=== PATIENT | female | born 1940 | race Caucasian/White ===

== ENCOUNTER → 2016-10-15 | Outpatient (CLI) | payer OTHER, MEDICAID | LOC: BHFA 13:00 | PROVIDERS: ATTEND Internal Medicine Cardiovascular Disease | DX: I25.10 Atherosclerotic heart disease of native coronary artery without angina pectoris (principal); I48.91 Unspecified atrial fibrillation; R55 Syncope and collapse ==

== ENCOUNTER 2016-12-04 13:25 | Emergency (ER) | payer OTHER, MEDICAID ==
[2016-12-04 13:52] VITALS: TEMP 98.4
--- NOTE | 2016-12-04 13:54 | EDPHY ---
H & P Time Seen by Provider: 12/04/16 13:41 HPI/ROS: CHIEF COMPLAINT: Left hand pain History by patient HISTORY OF PRESENT ILLNESS: 76-year-old woman with history of strokes and on Coumadin presents complaining of left hand pain since yesterday when she was getting up from her recliner and her left hand slipped off the arm rest. Initially did not hurt but then later in the day she noticed she was having pain when she tried to do things with her left hand. This morning she woke up and it was very painful and she could hold things because it hurt and there was some redness on the dorsum of her hand and it hurt to touch. There was no direct trauma to the dorsum of the hand which is the place that hurts the most. She was coming in to get her INR checked and thought she should get her hand checked out as well. She did get a herpes zoster vaccine earlier this year. She denies any fever chills and is otherwise feeling well. REVIEW OF SYSTEMS: As in HPI, and all other systems reviewed and are negative Smoking Status: Never smoked Physical Exam: General Appearance: Alert and no distress. Eyes: Pupils equal and round no injection. Musculoskeletal: Neck is supple and nontender. Extremities: Left hand with minimal erythema over the dorsum of the hand with minimal to no swelling, positive marked tenderness over the proximal 3rd and 4th metacarpals. Positive small 3 mm red-brownish macule in middle of redness. Positive full range of motion of all fingers against resistance but with pain with extension against resistance. Radial pulses 2+ and equal bilaterally. Distal cap refill is less than 2 seconds, distal sensations intact, there is no tenderness on the palmar side.. Skin: No rashes or lesions except as described above. Lymph: No axillary adenopathy Constitutional: Initial Vital Signs Temperature (C) 36.9 C 12/04/16 13:48 Heart Rate 67 12/04/16 13:48 Respiratory Rate 20 12/04/16 13:48 Blood Pressure 131/62 H 12/04/16 13:48 O2 Sat (%) 94 12/04/16 13:48 O2 Delivery Mode Room Air Allergies/Adverse Reactions: codeine [Codeine] Allergy (Verified 12/04/16 13:44) Penicillins Allergy (Verified 12/04/16 13:44) shellfish derived Allergy (Verified 12/04/16 13:44) Sulfa (Sulfonamide Antibiotics) Allergy (Verified 12/04/16 13:44) Home Medications: Medication Instructions Recorded Enalapril Maleate [Vasotec 5 MG 5 mg PO BID 01/24/14 (*)] Insulin Glargine [Lantus 100 8 units SC DAILY 01/24/14 UNITS/ML (*)] Levothyroxine [Synthroid 75 mcg 75 mcg PO DAILY06 01/24/14 (*)] Nitroglycerin [Nitrostat 0.4 mg 0.4 mg SL PRN PRN 01/24/14 (*)] [place]-3 Fatty Acids [Fish Oil 1000 1,000 mg PO DAILY 01/24/14 mg (*)] Oxybutynin Chloride [OXYBUTYNIN 15 mg PO DAILY 01/24/14 CHLORIDE ER] Simvastatin [Zocor 40 mg] 40 mg PO DAILY18 01/24/14 metFORMIN HCL [Glucophage 500 mg 1,000 mg PO BIDMEAL 01/24/14 (*)] Aspirin [Aspirin 81mg (*)] 81 mg PO DAILY 08/27/14 Naproxen Sodium [Aleve 220 MG (*)] 220 mg PO DAILY 08/27/14 Omeprazole [Prilosec 20 mg] 20 mg PO DAILY@07 08/27/14 Propafenone HCl Sr [Rythmol Sr 225 mg PO BID 08/27/14 225mg (*)] Warfarin Sodium [Coumadin 5MG (*)] 2.5 mg PO SUMOWETHFRSA@16 08/27/14 Warfarin Sodium [Coumadin 5MG (*)] 5 mg PO TU@16 08/27/14 ALPRAZolam [Xanax 0.25 MG (*)] 0.25 mg PO BID PRN #14 tab 08/29/14 ALPRAZolam [Xanax 0.25 MG (*)] 0.25 mg PO DAILY PRN #0 tab 08/29/14 Doxycycline Hyclate 100 mg PO BID #20 capsule 12/18/15 Furosemide [Lasix 20 MG (*)] 20 mg PO DAILY #20 tab 02/02/16 Cephalexin 500 mg PO BID #20 capsule 12/04/16 MDM/Departure - [facility] ED Course/Re-evaluation: 76-year-old woman with multiple medical problems presents complaining of left hand pain and redness after minor trauma yesterday. X-ray shows no evidence of fracture. Given the hand is red, and tender with a small lesion that the patient says has been there for months but could be portal for infection I will go ahead and start her on Keflex for presumed cellulitis. Patient has an allergy to penicillins but states she has taken Keflex in the past without trouble. We discussed at length return precautions and I recommend recheck in 24-48 hours with her primary care physician. Patient understands and is agreeable to this plan. - Depart Disposition: Home, Routine, Self-Care Clinical Impression: Hand pain, left, Cellulitis of hand, left Clinical Impression: (Ruled Out): Contusion of hand, left, Cellulitis and abscess of hand Condition: Good Instructions: Cellulitis (ED) Additional Instructions: You were seen by Dr. Belen Gleason today. Your x-ray showed no evidence of broken bones. Because of the redness and tenderness we will treat it like an infection. Please start your antibiotics, Keflex, today. You may take Tylenol) the cecum in a fan) as needed for pain. Please have your hand recheck by her primary care physician in 24-48 hours. Return immediately if the hand seems to be getting worse, he developed a fever, the redness is spreading or if the pain is uncontrolled. I recommend taking probiotics in between doses of antibiotics. Return for any worsening or new concerns. Prescriptions: Cephalexin 500 mg PO BID #20 capsule Referrals: Cole Marcos MD [Primary Care Provider] - As per Instructions
[2016-12-04 14:34] VITALS: BP 147/74; PULSE 74; RESP 18; O2SAT 97
== END 2016-12-04 14:32 | disposition home or self-care (01) ==
LOC: CED 13:25
DX: L03.114 Cellulitis of left upper limb (principal); Z79.01 Long term (current) use of anticoagulants; Z79.82 Long term (current) use of aspirin
CPT/HCPCS: 73130-PO

== ENCOUNTER → 2016-12-30 | Outpatient (CLI) | payer OTHER, MEDICAID | LOC: CIMAGING 11:35 | PROVIDERS: ATTEND Internal Medicine | DX: R42 Dizziness and giddiness (principal); G31.9 Degenerative disease of nervous system, unspecified | CPT/HCPCS: 70450-PO ==

== ENCOUNTER → 2017-06-25 | Outpatient (CLI) | payer OTHER, MEDICAID | LOC: CIMAGING 07:19 | PROVIDERS: ATTEND Internal Medicine | DX: K80.20 Calculus of gallbladder without cholecystitis without obstruction (principal); K76.0 Fatty (change of) liver, not elsewhere classified | CPT/HCPCS: 76700-PO ==

== ENCOUNTER → 2017-07-03 | Outpatient (CLI) | payer OTHER, MEDICAID ==
[~2017-07-03] MED LIST: IOPAMIDOL (ISOVUE-300) 100 ML BTL ONE
== END ==
LOC: CIMAGING 13:10
PROVIDERS: ATTEND Internal Medicine
DX: K80.20 Calculus of gallbladder without cholecystitis without obstruction (principal); K57.30 Diverticulosis of large intestine without perforation or abscess without bleeding; K86.89 Other specified diseases of pancreas; K44.9 Diaphragmatic hernia without obstruction or gangrene
CPT/HCPCS: 74177; Q9967

== ENCOUNTER 2017-08-27 13:31 | Emergency (ER) | payer OTHER, MEDICAID ==
--- NOTE | 2017-08-27 14:00 | EDPHY ---
H & P Stated Complaint: SYNCOPE YESTERDAY AT 3PM WHILE IN CAR/HAS HAD STIFF L NECK X 2 DAYS PRIOR T Time Seen by Provider: 08/27/17 13:48 HPI/ROS: CHIEF COMPLAINT: Syncope HISTORY OF PRESENT ILLNESS: 77-year-old female with coronary artery disease presents after a syncopal episode. Yesterday she was a passenger in a car when she developed upper back pain. She took 1 nitroglycerin. After the nitroglycerin, she began to feel"not well"and then had a syncopal episode. She awoke after several seconds and felt back to normal. The back pain resolved. Several weeks ago, she had a syncopal episode after taking 2 nitroglycerin. She has recently lost weight and her blood pressure is lower than it use to be. She takes amlodipine for blood pressure management. No other history of syncope. She awoke this morning with left-sided neck discomfort after sleeping in a recliner. The neck pain occurs only with neck movement and resolves at rest. REVIEW OF SYSTEMS: complete 10 point ROS negative except at noted in the HPI - Personal History Current Tetanus Diphtheria and Acellular Pertussis (TDAP): Yes Tetanus Vaccine Date: unsure - Medical/Surgical History Hx Asthma: No Hx Chronic Respiratory Disease: No Hx Diabetes: Yes Hx Cardiac Disease: Yes Hx Renal Disease: No Hx Cirrhosis: No Hx Alcoholism: No Hx HIV/AIDS: No Hx Splenectomy or Spleen Trauma: No Other PMH: heart bypass surgery, irregular heartbeat/AFIB, mini stroke, fall in 2014, type 2 diabetes, bilateral knee replacements, kidney infection. - Social History Smoking Status: Never smoked Alcohol Use: Sober Additional Social History: - Physical Exam Exam: General Appearance: Alert, pleasant Eyes: Pupils equal and round, no conjunctival pallor ENT, Mouth: Mucous membranes moist Neck: Normal inspection Respiratory: Lungs are clear to auscultation Cardiovascular: Regular rate and rhythm Gastrointestinal: Abdomen is soft and nontender Neurological: A&O, nonfocal, normal gait Skin: Warm and dry, no rash Extremities: Nontender, no pedal edema Psychiatric: Mood and affect normal Constitutional: Initial Vital Signs Temperature (C) 37 C 08/27/17 13:38 Heart Rate 65 08/27/17 13:38 Respiratory Rate 18 08/27/17 13:38 Blood Pressure 118/65 08/27/17 13:38 O2 Sat (%) 95 08/27/17 13:38 O2 Delivery Mode Room Air Allergies/Adverse Reactions: codeine [Codeine] Allergy (Verified 08/27/17 13:36) Penicillins Allergy (Verified 08/27/17 13:36) shellfish derived Allergy (Verified 08/27/17 13:36) Sulfa (Sulfonamide Antibiotics) Allergy (Verified 08/27/17 13:36) Home Medications: Medication Instructions Recorded Enalapril Maleate [Vasotec 5 MG 5 mg PO BID 01/24/14 (*)] Levothyroxine [Synthroid 75 mcg 75 mcg PO DAILY06 01/24/14 (*)] Nitroglycerin [Nitrostat 0.4 mg 0.4 mg SL PRN PRN 01/24/14 (*)] [place]-3 Fatty Acids [Fish Oil 1000 1,000 mg PO DAILY 01/24/14 mg (*)] Oxybutynin Chloride [OXYBUTYNIN 15 mg PO DAILY 01/24/14 CHLORIDE ER] Simvastatin [Zocor 40 mg] 40 mg PO DAILY18 01/24/14 metFORMIN HCL [Glucophage 500 mg 1,000 mg PO BIDMEAL 01/24/14 (*)] Aspirin [Aspirin 81mg (*)] 81 mg PO DAILY 08/27/14 Naproxen Sodium [Aleve 220 MG (*)] 220 mg PO DAILY 08/27/14 Omeprazole [Prilosec 20 mg] 20 mg PO DAILY@07 08/27/14 Propafenone HCl Sr [Rythmol Sr 225 mg PO BID 08/27/14 225mg (*)] Warfarin Sodium [Coumadin 5MG (*)] 2.5 mg PO SUMOWETHFRSA@16 08/27/14 Warfarin Sodium [Coumadin 5MG (*)] 5 mg PO TU@16 08/27/14 ALPRAZolam [Xanax 0.25 MG (*)] 0.25 mg PO BID PRN #14 tab 08/29/14 ALPRAZolam [Xanax 0.25 MG (*)] 0.25 mg PO DAILY PRN #0 tab 08/29/14 Doxycycline Hyclate 100 mg PO BID #20 capsule 12/18/15 Furosemide [Lasix 20 MG (*)] 20 mg PO DAILY #20 tab 02/02/16 Cephalexin 500 mg PO BID #20 capsule 12/04/16 Medical Decision Making - Diagnostics EKG Interpretation: EKG interpreted by me reveals first-degree AV block, rate 60, nonspecific IVCD, T-wave flattening in the anterior leads. Interpretation: Abnormal EKG ED Course/Re-evaluation: This patient presents after a syncopal episode yesterday. The episode occurred after taking nitroglycerin and I suspect that she became hypotensive. I doubt acute coronary syndrome. Stat EKG reveals no evidence of ischemia or dysrhythmia. She is feeling back to normal now. Obs in the ED, BP remained normal and she remained asymptomatic. Safe/stable for d/c home. Differential Diagnosis: Differential diagnosis includes though is not limited to cardiac dysrhythmia, CVA, TIA, GI bleed, sepsis, hypoglycemia. - Data Points Laboratory Results: Laboratory Results 08/27/17 14:00 08/27/17 14:00 Point of Care Test Results: Chemistry 08/27/17 14:06 POC Troponin I 0.02 ng/mL ng/mL (0.00-0.08) Departure - Departure Disposition: Home, Routine, Self-Care Clinical Impression: Syncope Qualifiers: Syncope type: unspecified Qualified Code(s): R55 - Syncope and collapse Condition: Good Instructions: Syncope (ED) Additional Instructions: Take and record your blood pressure 2 times daily. Follow-up with your doctor regarding your blood pressure medications. You have had 2 episodes of fainting after taking nitroglycerin. I suspect that the nitroglycerin is causing your blood pressure to become too low. Avoid taking nitroglycerin whenever possible. If you need to take nitroglycerin, please lay down (or sit in your recliner) before doing so. Referrals: Cole Marcos MD [Primary Care Provider] - As per Instructions
--- NOTE | 2017-08-27 14:00 | CPEKG ---
Heart Rate: 60 RR Interval: 1000 P-R Interval: 224 QRSD Interval: 130 QT Interval: 444 QTC Interval: 444 P [place]: 11 QRS [place]: -22 T Wave [place]: -21 EKG Severity - ABNORMAL ECG - EKG Impression: SINUS RHYTHM EKG Impression: FIRST DEGREE AV BLOCK EKG Impression: NONSPECIFIC INTRAVENTRICULAR CONDUCTION DELAY Electronically Signed By: Roma Swenson 27-Aug-2017 14:35:36
[2017-08-27 14:16] LABS: PLATELET COUNT 195 10^3/uL (150-400)
[2017-08-27 15:20] VITALS: BP 116/52
== END 2017-08-27 15:20 | disposition home or self-care (01) ==
DX: R55 Syncope and collapse (principal); E11.9 Type 2 diabetes mellitus without complications; Z79.01 Long term (current) use of anticoagulants; Z79.82 Long term (current) use of aspirin; Z79.84 Long term (current) use of oral hypoglycemic drugs
CPT/HCPCS: 84484-PO

== ENCOUNTER → 2018-01-15 | Outpatient (CLI) | payer OTHER, MEDICAID | LOC: CIMAGING 16:20 | PROVIDERS: ATTEND Internal Medicine | DX: R10.9 Unspecified abdominal pain (principal) | CPT/HCPCS: 74022-PO ==

== ENCOUNTER → 2018-04-10 | Outpatient (CLI) | payer OTHER, MEDICAID | LOC: FIMAGING 15:03 | PROVIDERS: ATTEND Internal Medicine | DX: M51.36 Other intervertebral disc degeneration, lumbar region (principal); M53.86 Other specified dorsopathies, lumbar region; M24.852 Other specific joint derangements of left hip, not elsewhere classified ==

== ENCOUNTER → 2018-04-18 | Outpatient (CLI) | payer OTHER, MEDICAID | LOC: FIMAGING 09:58 | PROVIDERS: ATTEND Internal Medicine | DX: M51.26 Other intervertebral disc displacement, lumbar region (principal) ==

== ENCOUNTER → 2018-04-22 | Outpatient (CLI) | payer OTHER, MEDICAID | LOC: CIMAGING 13:23 | PROVIDERS: ATTEND Internal Medicine | DX: M23.41 Loose body in knee, right knee (principal); M54.16 Radiculopathy, lumbar region; Z96.651 Presence of right artificial knee joint | CPT/HCPCS: 73562-PO ==

== ENCOUNTER → 2018-06-10 | Outpatient (CLI) | payer OTHER, MEDICAID | LOC: EMCIMAGING 13:01 | PROVIDERS: ATTEND Internal Medicine Cardiovascular Disease | DX: M79.605 Pain in left leg (principal); R60.9 Edema, unspecified | CPT/HCPCS: 93971-PN ==

== ENCOUNTER → 2018-06-16 | Outpatient (CLI) | payer OTHER, MEDICAID | LOC: BHFA 09:30 | PROVIDERS: ATTEND Internal Medicine Cardiovascular Disease | DX: I48.91 Unspecified atrial fibrillation (principal); I25.10 Atherosclerotic heart disease of native coronary artery without angina pectoris; I10 Essential (primary) hypertension | CPT/HCPCS: 78452; 93017; A9500; J2785 ==